=== PATIENT | male | born 1955 | race Hispanic/Latino ===

== ENCOUNTER 2016-11-08 17:07 | Emergency (ER) | payer OTHER ==
[~2016-11-08 17:07] MED LIST: Iopamidol 370 76% 100 ML VIAL ONE
[2016-11-08] MEDS ORDERED: Sodium Chloride 0.9% 1,000 ML ONE (17:25)
[2016-11-08] MEDS ORDERED: Ondansetron HCl/PF 4 MG/2 ML Vial ONE (17:25)
[2016-11-08] MEDS ORDERED: Adacel (T-DAP) 0.5 ML VIAL ONE (18:12)
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
[2016-11-08 19:21] LABS: Band 17 % (5-11); Hemoglobin 14.3 g/dL (14.0-18.0); Hypochromia SLIGHT = 6-15 cells (100X) (0-5/hpf); Lymphocytes 4 % (21-51); MDiff Complete? YES; Mean Corpuscular HGB CONC 33.8 g/dL (32.0-36.0); Mean Corpuscular Hemoglobin 28.7 pg (27.0-31.0); Mean Corpuscular Volume 85.1 fl (80.0-94.0); Monocytes 2 % (0-10); Neutrophil 70 % (42-75); PLT Morphology Comment Appears Adequate; Platelet Count 350 thou/uL (130-400); Reactive Lymphocytes 7 % (0-10); Red Blood Cell (RBC) Count 4.97 mill/uL (4.70-6.10); Target Cells MODERATE= 6-15 cells (100X) (0-1/hpf)
[2016-11-08 19:32] LABS: ALT (SGPT) 19 U/L (8-55); AST (SGOT) 36 U/L (5-34); Albumin 4.1 g/dL (3.4-4.8); Alcohol Less than 10 mg/dL (Less than 10); Alkaline Phosphatase 88 U/L (40-150); Anion Gap 16 mmol/L (10-20); BUN (Urea Nitrogen) 15 mg/dL (8.4-25.7); Bilirubin, Total 0.5 mg/dL (0.2-1.2); Calc. Creatinine Clearance 0 mL/min (70-130); Calcium 8.9 mg/dL (7.8-10.44); Carbon Dioxide 22 mmol/L (23-31); Chloride 104 mmol/L (98-107); Estimated GFR-MDRD Greater than 90; Globulin 3.3 g/dL (2.4-3.5); Glucose 99 mg/dL (80-115); Potassium 3.9 mmol/L (3.5-5.1); Protein, Total 7.4 g/dL (5.8-8.1); Sodium 138 mmol/L (136-145)
--- NOTE | 2016-11-08 19:38 | CT ---
CT CHEST WITH CONTRAST CT ABDOMEN AND PELVIS WITH CONTRAST CT THORACIC SPINE WITH CONTRAST WITH 3D REFORMATTED IMAGING CT LUMBAR SPINE WITH CONTRAST WITH 3D REFORMATTED IMAGING 11/08/16 FINDINGS: There is trace pleural air along the anterior aspect of the pneumomediastinum, but otherwise no sign ificant pneumothorax. There are subtle left lateral 2nd and 3rd rib fractures and a more chronic denys earing lateral left 7th rib fracture. There is a posterior medial left 1st rib fracture and posterio r and medial right 1st and 2nd rib fracture deformities. There is a fracture involving the left shannen cular pillar region of C7 incompletely assessed. Subtle fracture of the right transverse process of T1 and bilateral transverse processes of T2. Minimally displaced fracture plane traverse the T4 vert ebral body, in an oblique orientation. There is a fracture of the right, first costosternal articula tion. No evidence of pleural effusion. The thoracoabdominal aorta is atrophic in appearance with scattered vascular disease. No definite acute posttraumatic sequela of the solid abdominal viscera. There is a subtle low attenuation focus of the lateral mid left kidney which may be related to a parapelvic c yst. No disseminated free air or significant ascites. Bowel is incompletely assessed without enteric contrast media. IMPRESSION: 1. Bilateral areas of pulmonary contusion with bilateral rib fractures as well as trace pleural air of the mediastinum compatible with a small volume of pneumomediastinum, related to fracture at the right, first costosternal articulation. 2. Fractures of the upper thoracic spine as above. No associated subluxation of significance. Findings telephoned to patient's physician, Alphonso Quiros of the Emergency Department at 1835 hours, 11/08/16 Code CR POS: [facility]
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
--- NOTE | 2016-11-08 21:14 | RAD ---
EXAM: LEFT HAND TWO VIEWS 11/08/16 COMPARISON: 11/08/16 at 6:01 p.m. FINDINGS: Redemonstration of multiple fractures with associated soft tissue swelling. Fiberglass splint is yazmin ntified. IMPRESSION: Persistent fractures. POS: [facility]
== END 2016-11-08 20:23 | disposition short-term general hospital (02) ==
LOC: NAV ERS 17:07
DX: S22.43XA Multiple fractures of ribs, bilateral, initial encounter for closed fracture (principal); S62.305A Unspecified fracture of fourth metacarpal bone, left hand, initial encounter for closed fracture; S62.307A Unspecified fracture of fifth metacarpal bone, left hand, initial encounter for closed fracture; S12.500A Unspecified displaced fracture of sixth cervical vertebra, initial encounter for closed fracture; S12.200A Unspecified displaced fracture of third cervical vertebra, initial encounter for closed fracture; S12.600A Unspecified displaced fracture of seventh cervical vertebra, initial encounter for closed fracture; S22.9XXA Fracture of bony thorax, part unspecified, initial encounter for closed fracture; F17.210 Nicotine dependence, cigarettes, uncomplicated; V49.9XXA Car occupant (driver) (passenger) injured in unspecified traffic accident, initial encounter
CPT/HCPCS: 29125; 70450; 71260; 72125; 74177; 80053; 80307; 85025; 90471; 90715; 96361; 96374; 96375; G0390; J1170; J2270; J2405; J7050